=== PATIENT | male | born 1940 | race Caucasian/White ===

== ENCOUNTER → 2016-09-19 | Outpatient (CLI) | payer MEDICARE ==
--- NOTE | 2016-09-19 09:30 | CT ---
EXAMINATION TYPE: CT brain wo con DATE OF EXAM: 09/19/2016 9:09 AM COMPARISON: NONE HISTORY: 76-year-old male complains of headache, dizziness, and chronic nausea. Diplopia. TECHNIQUE: Examination was done in axial plane without intravenous contrast. Coronal and sagittal reconstructio ns performed. CT DLP: 997.4 mGycm Automated exposure control for dose reduction was used. FINDINGS: There is no evidence of acute intracranial hemorrhage, acute ischemic changes, mass, mass-effect, or extra-axial fluid collection. There is no effacement of cerebral sulci or basal subarachnoid cister ns. There is no midline shift. Rahman-white matter distinction is preserved. There is mild central cerebral volume loss with secondary mild ventricular prominence. There is mild- to-moderate confluent periventricular and deep white matter hypodensity suggesting chronic small vess el ischemic disease. Paranasal sinuses and mastoid air cells are well pneumatized. Orbits and globes are intact. IMPRESSION: No acute intracranial abnormality seen. Mild central cerebral atrophy and mild to moderate confluent changes of chronic small vessel ischemic disease.
== END ==
LOC: RADCTMAIN 08:46
PROVIDERS: ATTEND Family Medicine
DX: G31.9 Degenerative disease of nervous system, unspecified (principal); I67.82 Cerebral ischemia
CPT/HCPCS: 70450

== ENCOUNTER → 2016-10-17 | Outpatient (CLI) | payer MEDICARE ==
[2016-10-17 11:19] LABS: ALT 29 U/L (21-72); AST 19 U/L (17-59); Alkaline Phosphatase 80 U/L (38-126); Anion Gap 11 mmol/L; Blood Urea Nitrogen 13 mg/dL (9-20); Calcium 10.2 mg/dL (8.4-10.2); Carbon Dioxide 31 mmol/L (22-30); Chloride 102 mmol/L (98-107); Glucose 94 mg/dL (74-99); Non-African American GFR(MDRD) >60 (>60 ml/min/1.73 sqM); Sodium 144 mmol/L (137-145); Total Protein 7.2 g/dL (6.3-8.2)
--- NOTE | 2016-10-17 12:59 | CT ---
EXAMINATION TYPE: CT abdomen pelvis w con DATE OF EXAM: 10/17/2016 12:45 PM COMPARISON: CT abdomen and pelvis October 22, 2015. HISTORY: Generalized pain for [address] DLP: 1138 mGycm, Automated Exposure Control for Dose Reduction was Utilized. CONTRAST: CT scan of the abdomen and pelvis is performed with oral and with IV Contrast, patient injected with 100 mL of Omnipaque 300. FINDINGS: LUNG BASES: No significant abnormality is appreciated. LIVER/GB: There are some scattered subcentimeter hypodense lesions throughout the liver that are too small to further characterize per presumed benign. PANCREAS: No significant abnormality is seen. SPLEEN: No significant abnormality is seen. ADRENALS: Slight thickening to both adrenal glands is felt to reflect benign hyperplasia and is stabl e KIDNEYS: There are some punctate stones measuring 1 to 2 mm scattered throughout the left kidney, for reference 2 mm stone on coronal image 65 centrally or medially. There is symmetric cortical medullar y uptake and excretion from both kidneys without evidence of hydronephrosis bilaterally. There are 2 simple appearing cyst upper to mid pole level left kidney redemonstrated. Dependent calculi and bladd er are redemonstrated. On current study there is slightly more lobulated wall thickening or soft tiss ue along the posterior inferior bladder wall could reflect product of chronic inflammation related to long-standing renal calculi but neoplasm cannot be excluded seen best on coronal image 54 and sagitt al image 31. BOWEL: Sigmoid colonic diverticulosis is present. There is persistent moderate wall thickening in the sigmoid colon without surrounding inflammatory change. Colitis cannot be excluded given this finding . There is no suspicious small or large bowel dilatation. Normal contrast-filled appendix is seen fro m cecum. PROSTATE/SEMINAL VESICLES: Some central zone calcifications are seen in normal size prostate gland. LYMPH NODES: No greater than 1cm abdominal or pelvic lymph nodes are appreciated. OSSEOUS STRUCTURES: There is loss of normal lumbar lordosis. Multilevel spurring in the spine. There is multilevel disc space narrowing most prominent at L4-L5 and L5-S1 levels. OTHER: No significant additional abnormality is seen. IMPRESSION: 1. Redemonstration of sigmoid colonic diverticulosis with moderate wall thickening, colitis at this l evel cannot be entirely excluded though there is no significant change from prior study and no surrou nding inflammation identified. Clinical correlation advised. Colonoscopy correlation recommended if h as not been performed in last 3 years to assess for mucosal lesion or neoplasm after treatment. 2. Redemonstration of multiple bladder calculi with more suspicious eccentric soft tissue thickening noted, neoplasm at this level cannot be excluded. Follow-up cystoscopy advised.
[2016-10-17 17:00] LABS: Prostate Specific Antigen 2.53 ng/mL (0.00-4.00)
== END | disposition home or self-care (01) ==
LOC: RADCTMAIN 10:44
PROVIDERS: ATTEND Nurse Practitioner Adult Health
DX: K57.30 Diverticulosis of large intestine without perforation or abscess without bleeding (principal); N21.0 Calculus in bladder
CPT/HCPCS: 84153; 80053; 74177; 36415; Q9967

== ENCOUNTER → 2016-10-30 | Outpatient (CLI) | payer MEDICARE | LOC: RADUSMAIN 07:57 | PROVIDERS: ATTEND Family Medicine | DX: Z53.9 Procedure and treatment not carried out, unspecified reason (principal) ==

== ENCOUNTER → 2016-12-20 | Outpatient (CLI) | payer MEDICARE ==
--- NOTE | 2016-12-23 09:21 | PE ---
Nuclear medicine PET/CT HISTORY: Bladder carcinoma Patient received 15 mCi F-18 FDG intravenously. Delayed scanning was performed from the skull base to the mid thighs. Localization and attenuation correction CT scan was performed exam is correlated to prior CT abdomen pelvis 17 October 2016 Neck and chest: There is no suspicious hypermetabolic uptake. No evident adenopathy. No lung mass. Co ronary artery calcifications are present. Calcified right hilar nodes is present. The right upper lob e shows a calcified nodule on axial image 86. Abdomen pelvis: No suspicious hypermetabolic uptake. No evident liver mass. No retroperitoneal adenop athy. Extensive diverticular changes associated with the sigmoid colon, mild hypermetabolic uptake as sociated with the colon felt likely to be physiologic. The bladder shows abnormal wall thickening. Pr ostate is enlarged and shows associated calcifications. About the bladder there is strand-like densit y within the fat possibly due to posttreatment or tumor. Hypermetabolic uptake may be obscured by rad iographic pharmaceutical within the bladder. Osseous structures are within normal limits. IMPRESSION: Findings compatible with patient's known bladder carcinoma.
== END | disposition home or self-care (01) ==
LOC: RADPETMAIN 11:52
PROVIDERS: ATTEND Internal Medicine Hematology & Oncology
DX: C67.9 Malignant neoplasm of bladder, unspecified (principal)
CPT/HCPCS: 78815; A9552

== ENCOUNTER → 2017-08-25 | Outpatient (CLI) | payer MEDICARE ==
--- NOTE | 2017-08-25 08:44 | US ---
EXAMINATION TYPE: US gallbladder DATE OF EXAM: 08/25/2017 COMPARISON: CT abdomen and pelvis October 17, 2016 CLINICAL HISTORY: K80.20 calculus of Gall bladder w/o cholecystis. Possible GB issue EXAM MEASUREMENTS: Liver Length: 16.0 cm Gallbladder Wall: 0.2 cm CBD: 0.5 cm Right Kidney: 10.0 x 5.0 x 4.4 cm Pancreas: Obscured by bowel gas Liver: Cyst left lobe= 1.3 x 1.2 x 1.4 cm/ Heterogeneous, right lobe difficult to visualize Gallbladder: Possible "gravel" stones seen on LLD images Evidence for sonographic Douglass's sign: No CBD: wnl Right Kidney: wnl Simple appearing 1.3 cm cyst in the liver corresponds to inferior right lobe lesion on CT. There are small stones and/or gallbladder sludge dependently in gallbladder. No abnormal wall thickening or amadeo rounding fluid signal is noted. IMPRESSION: Small degree of gallbladder sludge and/or small stones without secondary ultrasound evide nce for acute cholecystitis.
== END | disposition home or self-care (01) ==
LOC: RADUSWWP 08:00
PROVIDERS: ATTEND Family Medicine
DX: C67.9 Malignant neoplasm of bladder, unspecified (principal); K80.20 Calculus of gallbladder without cholecystitis without obstruction
CPT/HCPCS: 76705

== ENCOUNTER → 2017-11-13 | Outpatient (CLI) | payer MEDICARE ==
--- NOTE | 2017-11-13 20:02 | CT ---
EXAMINATION TYPE: CT sinus wo con DATE OF EXAM: 11/13/2017 COMPARISON: NONE HISTORY: Runny nose, sinus pressure. CT DLP: 605.9 mGycm. Automated Exposure Control for Dose Reduction was Utilized. TECHNIQUE: Multiple axial sections were obtained from the bottom of the maxilla to the top of the fro ntal sinuses with no contrast. FINDINGS: The orbital margins are intact. There is no evidence of blowout fracture. There is fairly normal deve lopment and aeration of the paranasal sinuses. Visualized temporal bones appear normal. The maxilla is intact. There is bilateral patency of the ostiomeatal complex. Nasal septum deviates t o the left side. Nasal bone is intact. Zygomatic arches appear normal. There is no evidence of orbita l mass. CONCLUSION: Nasal septum is deviated to the left side. Normal paranasal sinuses. Otherwise negative exam.
== END ==
LOC: RADCTMAIN 17:10
PROVIDERS: ATTEND Otolaryngology
DX: J34.2 Deviated nasal septum (principal)
CPT/HCPCS: 70486

== ENCOUNTER → 2017-11-13 | Outpatient (CLI) | payer MEDICARE ==
[2017-11-13 17:53] LABS: Blood Urea Nitrogen 24 mg/dL (9-20)
--- NOTE | 2017-11-16 08:36 | CT ---
EXAMINATION TYPE: CT ChestAbdPelvis w con DATE OF EXAM: 11/13/2017 COMPARISON: CT abdomen and pelvis October 17, 2016. CTA chest October 12, 2015. PET/CT December 20, 2016. HISTORY: History of bladder cancer and bladder removal. Observe for mets. CT DLP: 1008 mGycm. Automated Exposure Control for Dose Reduction was Utilized. CONTRAST: CT scan of the thorax, abdomen and pelvis is performed with oral and with IV Contrast, patient inject ed with 100 mL of Isovue 300. FINDINGS: LUNGS: Mild underlying emphysematous change with chronic interstitial fibrosis is redemonstrated bila terally. There is stable or less prominent 6 x 3 mm calcified superior aspect right lower lobe nodule axial image 30. Some areas of mild pleural thickening posteriorly in the left lung remain present. N o new suspicious parenchymal nodules or masses are identified bilaterally. No pleural effusion or pne umothorax is seen bilaterally. There is stable mild central peribronchial wall thickening. MEDIASTINUM: There is stable prominent AP window lymph node measuring 1.2 x 1.2 cm on axial image 24 without abnormal hypermetabolic uptake on prior PET CT. There is no new suspicious greater than 1 cm thoracic adenopathy. Coronary artery calcification is redemonstrated which is noted marker for coron toya artery disease. No cardiomegaly or pericardial effusion is seen. Few calcified right hilar lymph nodes are redemonstrated. OTHER: No additional significant abnormality is seen. LIVER/GB: A few tiny subcentimeter hypodense lesions are redemonstrated scattered throughout the live r felt stable and benign. Dependent density in gallbladder could reflect small degree of gallbladder sludge. PANCREAS: No significant abnormality is seen. SPLEEN: No significant abnormality is seen. ADRENALS: Slight thickening to both adrenal glands is stable favored benign. KIDNEYS: Simple appearing 1.8 cm cyst posteriorly mid pole level left kidney is redemonstrated. Punct ate calculi in left kidney are redemonstrated for reference coronal image 61 a 1-2 mm calculus. Subce ntimeter low dense lesion upper pole level right kidney is stable favored benign axial image 29 serie s 5. There is symmetric cortical medullary uptake and excretion from both kidneys without evidence of new concerning mass or hydronephrosis. There is been interval cystectomy with multiple clips in the pelvi s. There is new loop ileostomy in the right lower quadrant. BOWEL: Oral contrast reaches level of rectum. There is no suspicious small or large bowel dilatation. There are prominent diverticula in the left and sigmoid colon redemonstrated mild to moderate wall t hickening in the sigmoid colon redemonstrated, this is likely product of poor distention, colitis jeronimo uld be excluded clinically. GENITAL ORGANS: Prostate gland is not well visualized and may have been surgically resected at time o f bladder excision. Surgical clips in the pelvic sidewalls are identified. LYMPH NODES: No greater than 1cm abdominal or pelvic lymph nodes are appreciated. OSSEOUS STRUCTURES: Slight scoliotic curvature in the spine is seen spine is straightened on sagittal images. There is multilevel spurring in the lumbar spine. There is facet arthropathy lower lumbar le vels. OTHER: There is moderate atherosclerotic change of aorta extending into pelvic branch vessels. IMPRESSION: No recurrent mass or adenopathy is seen to suggest recurrent neoplasm. Interval cystecto my and likely prostatectomy changes noted.
== END ==
LOC: RADCTMAIN 17:06
PROVIDERS: ATTEND Internal Medicine Hematology & Oncology
DX: Z03.89 Encounter for observation for other suspected diseases and conditions ruled out (principal); C67.9 Malignant neoplasm of bladder, unspecified
CPT/HCPCS: 82565; 84520; 71260; 74177; 36415; Q9967

== ENCOUNTER → 2018-03-01 | Outpatient (CLI) | payer MEDICARE ==
[2018-03-01 10:33] LABS: Albumin 4.3 g/dL (3.5-5.0); Bilirubin, Delta 0.2 mg/dL (0.0-0.2); Potassium 5.1 mmol/L (3.5-5.1); Total Bilirubin 1.2 mg/dL (0.2-1.3); Total Protein 6.7 g/dL (6.3-8.2)
--- NOTE | 2018-03-01 11:41 | US ---
EXAMINATION TYPE: US kidneys/renal and bladder DATE OF EXAM: 03/01/2018 COMPARISON: CT 11/13/2017 CLINICAL HISTORY: C67.0 BLADDER CA. History of bladder cancer, urostomy EXAM MEASUREMENTS: Right Kidney: 10.2 x 4.3 x 4.3 cm Left Kidney: 9.9 x 5.2 x 4.0 cm Technical limitations due to overlying bowel content Right Kidney: no evidence of hydronephrosis Left Kidney: dense echogenic areas may be vascular calcifications. Hypoechoic focus upper pole = 1.7 x 1.7 x 1.2cm Bladder: surgically absent There is no evident ascites. Cortical medullary differentiation is maintained bilaterally. IMPRESSION: Hypoechoic focus left kidney could possibly represent simple cyst although exam is somewhat technical ly limited. Patient is post cystectomy.
== END | disposition home or self-care (01) ==
LOC: RADUSWWP 08:51
PROVIDERS: ATTEND Urology
DX: R93.422 Abnormal radiologic findings on diagnostic imaging of left kidney (principal); C67.0 Malignant neoplasm of trigone of bladder; Z90.6 Acquired absence of other parts of urinary tract
CPT/HCPCS: 36415; 76770; 80048; 80076

== ENCOUNTER → 2018-06-18 | Outpatient (CLI) | payer MEDICARE ==
--- NOTE | 2018-06-18 13:43 | CT ---
EXAMINATION TYPE: CT abdomen pelvis w con DATE OF EXAM: 06/18/2018 COMPARISON: HISTORY: Follow up study for known bladder CA. CT DLP: 1672 mGycm Automated exposure control for dose reduction was used. TECHNIQUE: Helical acquisition of images was performed from the lung bases through the pelvis. CONTRAST: Performed with Oral Contrast and with IV Contrast, patient injected with 100 mL of Isovue 300. FINDINGS: LUNG BASES: No significant abnormality is appreciated. LIVER/GB: Stable arterial enhancing 9 mm lesion near the hepatic dome on series 3 image 4 stable and may represent a flash filling hemangioma. Punctate hepatic lesions are slightly more conspicuous on t anna's exam possibly related to phase of contrast. Left hepatic lobe cyst is also unchanged measuring 1.2 cm. Cholelithiasis is redemonstrated. PANCREAS: No significant abnormality is seen. SPLEEN: No significant abnormality is seen. ADRENALS: Very mild thickening of the adrenal glands again favored to be benign. No new nodularity. KIDNEYS: 1.7 cm left midpole renal cyst is identified. Similarly 1.1 cm renal cyst is seen on the rig ht. No hydronephrosis. No perinephric fat stranding. FREE AIR: No free air is visualized. ADENOPATHY: No greater than 1 cm short axis lymph node is seen within the abdomen or pelvis. URINARY BLADDER: Urinary bladder is surgically absent. Surgical clips are in the pelvic sidewalls ar e redemonstrated. Loop ileostomy is also again seen. There is no hydronephrosis of either kidney from reflux. OSSEOUS STRUCTURES: There are moderate degenerative changes of the femoral acetabular joint and mild degenerative changes of the spine. BOWEL: Diffuse bowel wall thickening of the sigmoid colon may be sequela of chronic diverticulitis a s there are numerous colonic diverticula most pronounced in the sigmoid colon. OTHER: Extensive atherosclerosis is noted of the abdominal aorta and its branches. IMPRESSION: 1. NO PELVIC SOFT TISSUE DENSITY TO SUGGEST LOCAL RECURRENCE. NO ADENOPATHY IN THE ABDOMEN OR PELVIS. NO NEW EVIDENCE OF VISCERAL OR OSSEOUS METASTASIS WITHIN THE ABDOMEN OR PELVIS. 2. SCATTERED HEPATIC LESIONS APPEAR STABLE AND ARE AGAIN FAVORED TO BE BENIGN. BILATERAL BENIGN RENAL CORTICAL CYSTS ARE SEEN. 3. PERSISTENT DIFFUSE THICKENING OF THE SIGMOID COLON IS LONG SEGMENT AND COULD RELATE TO SEQUELA OF CHRONIC DIVERTICULITIS. NO ACTIVE DIVERTICULITIS SEEN. IF NOT RECENTLY PERFORMED COLONOSCOPY COULD BE CONSIDERED.
== END | disposition home or self-care (01) ==
LOC: RADCTMAIN 08:02
PROVIDERS: ATTEND Internal Medicine Hematology & Oncology
DX: C67.9 Malignant neoplasm of bladder, unspecified (principal); K76.9 Liver disease, unspecified; N28.1 Cyst of kidney, acquired; K63.89 Other specified diseases of intestine
CPT/HCPCS: 82565; 84520; 74177; 36415; Q9967

== ENCOUNTER 2018-11-24 09:28 | Day surgery (SDC) | payer MEDICARE ==
[2018-11-23 11:22] VITALS: BMI 28.7
[~2018-11-24 09:28] MED LIST: LACTATED RINGERS 1,000 ML IV SCH
[2018-11-24] MEDS ORDERED: LIDOCAINE 1% 20 ML VIAL (10MG/ML) FOR IV START INTRADERMA ONE (10:19)
[2018-11-24 10:20] VITALS: TEMP 98
[2018-11-24 10:27] LABS: Glucose,Whole Blood 84 mg/dL (75-99)
[2018-11-24] MEDS ORDERED: PROPOFOL 10 MG/ML 20 ML VIAL IV ONE (10:29)
[2018-11-24 11:23] VITALS: RESP 20
[2018-11-24 12:12] VITALS: BP 126/79; PULSE 69
--- NOTE | 2018-11-24 12:35 | P.PCN ---
Date of Procedure: 11/24/18 Procedure(s) Performed: PREOPERATIVE DIAGNOSIS: Abdominal pain, change in bowel habits POSTOPERATIVE DIAGNOSIS: Gastritis, polyps, diverticulosis PROCEDURE: 1. EGD with biopsy 2. Colonoscopy with snare polypectomy ANESTHESIA: MAC SURGEON: Krishna Quiroga M.D. SPECIMENS: Antrum, polyps ENDOSCOPIC PROCEDURE: The patient was on the endoscopy table in the left decubitus position. The Olympus gastroscope was inserted into the oropharynx and passed under direct visualization to the region of the third portion of the duodenum. From that point the scope was slowly withdrawn inspecting all surfaces carefully. There were no neoplastic inflammatory or polypoid lesions throughout the duodenum. The pylorus was widely patent. The stomach was carefully inspected. There was mild gastritis present. A biopsy of the antrum took place to rule out H. pylori. Retroflexion revealed a normal hiatus. The esophagus was then carefully examined. There were no neoplastic inflammatory or polypoid lesions throughout the visualized esophagus. The patient was kept on the endoscopy table in the left decubitus position. The Olympus colonoscope was inserted into the anus and passed under direct visualization to the base of the cecum. The appendiceal orifice was visualized. From that point the scope was slowly withdrawn inspecting all surfaces carefully. There were no neoplastic inflammatory or polypoid lesions throughout the cecum and ascending colon. At the hepatic flexure a polyp was identified and removed using the snare with cautery technique. At the transverse colon and additional small polyp was identified however this tissue seemed to fulgurate upon excision and no specimens obtained from that area. In the sigmoid colon and the rectum 2 additional polyps were identified and removed in a similar fashion. There was mild diverticulosis seen in the left side of the colon. Digital rectal examination was normal. The patient was taken to the recovery room in stable condition per anesthesia guidelines. RECOMMENDATIONS: Await biopsy results. Tentatively recommend follow-up colonosc opy 5 years. Patient will follow-up to discuss possible cholecystectomy given his ongoing right upper quadrant and right flank pain.
== END 2018-11-24 11:30 | disposition home or self-care (01) ==
LOC: ORWHC2ENDO 09:28
PROVIDERS: ATTEND Surgery
DX: D12.3 Benign neoplasm of transverse colon (principal); D12.5 Benign neoplasm of sigmoid colon; D12.8 Benign neoplasm of rectum; K29.50 Unspecified chronic gastritis without bleeding; K57.90 Diverticulosis of intestine, part unspecified, without perforation or abscess without bleeding; Z93.2 Ileostomy status; E78.5 Hyperlipidemia, unspecified; G47.30 Sleep apnea, unspecified; K21.9 Gastro-esophageal reflux disease without esophagitis; J44.9 Chronic obstructive pulmonary disease, unspecified; Z85.51 Personal history of malignant neoplasm of bladder; Z80.42 Family history of malignant neoplasm of prostate; Z80.0 Family history of malignant neoplasm of digestive organs; Z80.3 Family history of malignant neoplasm of breast; Z80.1 Family history of malignant neoplasm of trachea, bronchus and lung; Z87.891 Personal history of nicotine dependence; Z79.51 Long term (current) use of inhaled steroids; Z79.52 Long term (current) use of systemic steroids; Z79.899 Other long term (current) drug therapy; Z88.0 Allergy status to penicillin
CPT/HCPCS: 88305; 45385; 43239; J2704

== ENCOUNTER → 2018-12-24 | Outpatient (CLI) | payer MEDICARE ==
--- NOTE | 2018-12-24 10:06 | CT ---
EXAMINATION TYPE: CT abdomen pelvis w con DATE OF EXAM: 12/24/2018 COMPARISON: 06/18/2018 HISTORY: Bladder cancer CT DLP: 900.1 mGycm CONTRAST: CT scan of the abdomen and pelvis is performed with Oral Contrast and with IV Contrast, patient injec jourdan with 100 mL of Isovue 300. FINDINGS: LUNG BASES-: No visible nodule. No infiltrate. LIVER/GB: There is evidence of cholelithiasis. Hepatic steatosis noted. Small subcentimeter cysts n oted hepatic dome remains stable. No distinct solid lesion. Biliary tree is of normal caliber. PANCREAS: No inflammation. No distinct mass. SPLEEN: No splenic enlargement. No lesion seen. ADRENALS: No nodule. No thickening. KIDNEYS/BLADDER: No hydronephrosis. No nephrolithiasis. No distinct solid renal mass. Possible cys t midpole left kidney measures 1.9 cm. The urinary bladder surgically absent. Ileal loop J-pouch note d right lower quadrant ostomy. BOWEL: Right lower quadrant ostomy is again noted. Normal appendix. Normal bowel caliber. No inflam mation. GENITAL ORGANS: No gross abnormality. LYMPH NODES: No greater than 1cm abdominal or pelvic lymph nodes are appreciated. AORTA: No significant abnormality. OSSEOUS STRUCTURES: No significant abnormality is seen. OTHER: No significant additional abnormality is seen. IMPRESSION: 1. Stable postoperative changes of cystectomy and ileal conduit with right lower quadrant ostomy. 2. Fatty liver. 3. Hepatic and renal cysts.
== END | disposition home or self-care (01) ==
LOC: RADCTMAIN 06:56
PROVIDERS: ATTEND Internal Medicine Hematology & Oncology
DX: K76.0 Fatty (change of) liver, not elsewhere classified (principal); N28.1 Cyst of kidney, acquired; K76.89 Other specified diseases of liver; C67.9 Malignant neoplasm of bladder, unspecified; Z90.6 Acquired absence of other parts of urinary tract; Z93.6 Other artificial openings of urinary tract status; Z93.3 Colostomy status
CPT/HCPCS: 82565; 84520; 74177; 36415; Q9967 ×2

== ENCOUNTER → 2019-02-16 | Outpatient (CLI) | payer MEDICARE ==
--- NOTE | 2019-02-16 13:10 | US ---
EXAMINATION TYPE: US kidneys/renal and bladder DATE OF EXAM: 02/16/2019 COMPARISON: CT 12/24/2018, US 03/01/2018 CLINICAL HISTORY: C67.8 Bladder Cancer. HIstory of bladder cancer, bladder surgically absent EXAM MEASUREMENTS: Right Kidney: 10.2 x 6.1 x 4.7 cm Left Kidney: 10.5 x 5.9 x 4.2 cm Right Kidney: No hydronephrosis or masses seen Left Kidney: No hydronephrosis. Cystic area mid pole measuring 1.4 x 1.3 x 1.5 cm Bladder: Surgically absent There is no evidence for hydronephrosis at this point in time. No nephrolithiasis is seen. Few simpl e appearing thin-walled cysts bilaterally are better seen on CT versus ultrasound upper pole level of both kidneys. Bladder is surgically absent. Patient has a urostomy. IMPRESSION: No hydronephrosis is evident bilaterally.
== END | disposition home or self-care (01) ==
LOC: RADUSWWP 12:12
PROVIDERS: ATTEND Urology
DX: C67.8 Malignant neoplasm of overlapping sites of bladder (principal)
CPT/HCPCS: 76770